=== PATIENT | male | born 1940 | race Two or more races ===

== ENCOUNTER 2016-03-11 10:49 | Emergency (ER) | payer SELFPAY ==
[2016-03-11 10:58] VITALS: RESP 16; O2SAT 99
--- NOTE | 2016-03-11 11:59 | DX ---
PA and Lateral Chest 11:15 a.m. Indication: Dyspnea Comparison: None Findings: Lungs are clear except for mild diffuse peribronchial thickening and minimal left basilar a telectasis. No pneumothorax, airspace consolidation or effusion. Heart size is normal. Exuberant synd esmophytes along the anterior aspect of the mid thoracic spine is characteristic of benign diffuse id iopathic skeletal hyperostosis. Impression: Mild airways disease. Otherwise nothing acute.
--- NOTE | 2016-03-11 12:12 | EDPHY ---
H & P Stated Complaint: slipped on ice 03/07 fell hitting left post ribs and back Time Seen by Provider: 03/11/16 11:38 HPI/ROS: CHIEF COMPLAINT: Left posterior rib pain following fall 3 days ago HISTORY OF PRESENT ILLNESS: The patient presents to the emergency department with complaints of left posterior rib pain following a slip and fall on ice 3 days ago. The patient has pain with palpation and movement. He denies shortness of breath. He did not strike his head or lose consciousness. He has no complaints of headache or neck pain. He denies extremity pain. He denies any antecedent chest pain, palpitations or focal neurologic symptoms. The patient has been taken some [id number] medications with minimal improvement of his symptoms. He denies additional complaints but reports moderate pain in his left posterior ribs with palpation. REVIEW OF SYSTEMS: A comprehensive 10 point review of systems is otherwise negative aside from elements mentioned in the history of present illness. Source: Patient Exam Limitations: No limitations - Personal History Current Tetanus/Diphtheria Vaccine: Yes - Medical/Surgical History Hx Asthma: No Hx Chronic Respiratory Disease: No Hx Diabetes: Yes Hx Cardiac Disease: No Hx Renal Disease: No Hx Cirrhosis: No Hx Alcoholism: No Hx HIV/AIDS: No Hx Splenectomy or Spleen Trauma: No Other PMH: diabetes - Social History Smoking Status: Never smoked - Physical Exam Exam: General Appearance: Alert, no distress Head: Atraumatic Eyes: Pupils equal, round, reactive ENT, Mouth: No hemotympanum, no oral trauma Neck: Nontender, trachea midline Respiratory: Tenderness to palpation left posterior thorax, no subcutaneous emphysema, no crepitus Cardiovascular: Regular rate and rhythm Abdomen: Abdomen is soft and nontender, pelvis stable Skin: No lacerations, No abrasion Back: No midline T/L/S pain Extremities: Nontender, full range of motion Neurological: A&Ox3, normal motor function, normal sensory exam Constitutional: Initial Vital Signs Temperature (C) 36.6 C 03/11/16 10:55 Heart Rate 85 03/11/16 10:55 Respiratory Rate 16 03/11/16 10:55 Blood Pressure 170/86 H 03/11/16 10:55 O2 Sat (%) 99 03/11/16 10:55 O2 Delivery Mode Room Air Allergies/Adverse Reactions: No Known Allergies Allergy (Verified 01/30/17 10:54) Home Medications: Medication Instructions Recorded Gibenclgmida 09/23/09 Insulin N 09/23/09 METFORMIN HCL 09/23/09 Medical Decision Making - Diagnostics Imaging: Chest x-ray PA lateral: Images reviewed by myself, negative for rib fracture, pneumothorax or hemothorax. Images also reviewed with radiologist Dr. Felipe Thrasher. ED Course/Re-evaluation: The patient presents to the ED with thoracic pain following a mechanical fall. Clinically the patient does have evidence of fractures with focal tenderness over his ribs. This is not appreciated radiographically. The patient has no evidence of a pneumothorax or hemothorax. The patient will be treated conservatively with ibuprofen and Arthurd[place] as needed for severe pain. He is instructed to return to the ED immediately for worsening pain, difficulty breathing or other concerns. Differential Diagnosis: Differential diagnosis considered includes rib fracture, pneumothorax, hemothorax, chest wall contusion Departure - Departure Disposition: Home, Routine, Self-Care Clinical Impression: Rib injury Condition: Good Instructions: Rib Fracture (ED) Additional Instructions: 1. Take Ibuprofen or Motrin 600 mg by mouth three times a day. 2. Arthurdale as needed for severe pain 3. Ice pack and heating pad as needed referred comfort 4. Please follow up with your primary care provider for a recheck as needed 5. Please return to the ED for markedly worsening pain, difficulty breathing or other concerns. Referrals: [facility] [Outside] - As per Instructions Print Language: Nepali
[2016-03-11 12:35] VITALS: BP 164/82; PULSE 84; TEMP 97.3
== END 2016-03-11 12:28 | disposition home or self-care (01) ==
DX: S29.9XXA Unspecified injury of thorax, initial encounter (principal); E11.9 Type 2 diabetes mellitus without complications; W01.0XXA Fall on same level from slipping, tripping and stumbling without subsequent striking against object, initial encounter